=== PATIENT | female | born 1980 | race Caucasian/White ===

== ENCOUNTER 2020-07-07 11:08 | Emergency (ER) | payer MEDICAID ==
[~2020-07-07] VITALS: Ht 170.2 cm; Wt 75.8 kg
[~2020-07-07 11:08] MED LIST: CYCL-1 PO
[2020-07-07] MEDS ORDERED: LIDOcaine 5% patch TP STA (11:59)
[2020-07-07] MEDS ORDERED: ketorolac tromethamine 15mg/ml inj. IM ONE (12:00)
[2020-07-07] MEDS ORDERED: cyclobenzaprine 10mg tablet PO ONE (12:00)
[2020-07-07 12:41] VITALS: BP 120/81
[2020-07-07] MEDS ORDERED: CYCL-1 PO (13:16)
[2020-07-07] MEDS ORDERED: LIDO700A32 TOP (13:16)
== END 2020-07-07 13:27 | disposition home or self-care (01) ==
LOC: ER 11:08
DX: S16.1XXA Strain of muscle, fascia and tendon at neck level, initial encounter (principal); M54.2 Cervicalgia; R51.9 Headache, unspecified; Z86.69 Personal history of other diseases of the nervous system and sense organs; Z88.0 Allergy status to penicillin; Z88.5 Allergy status to narcotic agent; Z79.899 Other long term (current) drug therapy; X58.XXXA Exposure to other specified factors, initial encounter; Y93.89 Activity, other specified; Y92.89 Other specified places as the place of occurrence of the external cause; Y99.8 Other external cause status
CPT/HCPCS: 96372; 99283; J1885